=== PATIENT | female | born 1965 | race Caucasian/White ===

== ENCOUNTER 2024-07-03 11:17 | Emergency (ER) | payer BC, OTHER, SELFPAY ==
--- OUTSIDE RECORDS SUMMARY | 2024-07-03 11:19 | XMS REPORT | Continuity of Care Document ---
Author Name Unknown Address [address] [facility] [address] [place] [address] [facility] thconnect Address [address] [facility] [address] [place] [address] Care Team Providers Care Fish And Wildlife Warden Name Role Phone Juan David Miller Attending Clinician Unavailable ASHWIN WOODARD Attending Clinician Unavailable KAYLIN WINSTON Attending Clinician Unavailable JOSE GOSS Attending Clinician Unavailable [id number] Attending Clinician Unavailable Payers Payer Name Policy Type Policy Number Effective Date Expirati on Date Source [employer] MP [employer]: HMO ROUTE SALES [employer]ATE 73 ON STAND 9 [id number] 2022 00:00:00 Problems Condition Name Condition Details Condition Category Status Onset Date Resolution Date Last Treatment Date Treating Clinician Comments Source 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 Disease Active 10-18 00:00: 00 Pooja ann Primary hypertensi on Primary hypertensi on Disease Active 10-18 00:00: 00 Pooja ann Social History Social Habit Start Date Stop Date Quantity Comments Source Gender identity Jade Garnett - External Sexual orientation Vanesa Garnett - External Alcohol intake 2022-10-18 00:00:00 2022-10-18 00:00:00 Lifetime non-drinker (finding) Pooja Garnett - External Tobacco use and exposure 2022-10-16 00:00:00 2022-10-16 00:00:00 Smokeless tobacco non-user Pooja Seybold - External History of Social function 2022-10-16 00:00:00 2022-10-16 00:00:00 Pooja Little Sex Ass[birth year] At 1965 00:00:00 1965 00:00:00 Pooja Little Smoking Status Start Date Stop Date Source Never smoked tobacco Pooja Little Medications Ordered Medication Name Filled Medication Name Start Date Stop Date Current Medication? Ordering Clinician Indication Dosage Frequency Signature (SIG) Comments Components Source Metformin HCl 1000 MG oral Tablet 10-18 08:31: 21 Yes [id number] 3 1000mg Take 1 tablet (1,000 mg total) by mouth in the morning and 1 tablet (1,000 mg total) in the evening. Take with meals. Patient states she only takes 1 at bedtime. Pooja ann Pravastatin Sodium 10 MG oral Tablet 10-18 08:31: 21 Yes [id number] 3 10mg Take 1 tablet (10 mg total) by mouth daily Pooja ann Tirzepatide 10 MG/0.5ML subcutaneou s Solution Pen-injecto r 10-18 08:31: 21 Yes [id number] 3 10mg Inject 0.5 mL (10 mg total) into the skin once a week Pooja ann Lisinopril 5 MG oral Tablet 10-18 08:29: 05 10-18 00:00 :00 No 2.5mg Take 0.5 tablets (2.5 mg total) by mouth daily Pooja ann Lisinopril 5 MG oral Tablet 10-18 00:00: 00 Yes [id number] 5mg Take 1 tablet (5 mg total) by mouth daily Pooja ann Lisinopril 10 MG oral Tablet 10-09 00:00: 00 10-18 00:00 :00 No 10mg Take 1 tablet (10 mg total) by mouth daily Pooja ann OZEMPIC (0.25 or 0.5 mg/dose) 2 mg/1.5 mL SQ Solution Pen-Injecto r 10-09 00:00: 00 10-18 00:00 :00 No .5mg 0.5 mg once a week Pooja ann Fosinopril Sodium 10 MG oral Tablet 09-19 00:00: 00 10-18 00:00 :00 No TAKE 1/2 TABLET ONCE A DAY FOR 90 DAYS Pooja Allisona marissa Vital Signs Vital Name Observation Time Observation Value Comments S ource Systolic blood pressure 2022-10-18 13:22:00 104 mm[Hg] Pooja Williso ld - External Diastolic blood pressure 2022-10-18 13:22:00 64 mm[Hg] Pooja Williso ld - External Heart rate 2022-10-18 13:22:00 75 /min [place] delfina Garnett - External Body temperature 2022-10-18 13:22:00 36 Opal Pooja Willisold - External Respiratory rate 2022-10-18 13:22:00 14 /min Poojaantony Garnett - External Body height 2022-10-18 13:22:00 160 cm Jade Willisold - External Body weight 2022-10-18 13:22:00 73.936 kg Jade schroeder Seybold - External BMI 2022-10-18 13:22:00 28.87 kg/m2 Jade schroeder Seybold - External Encounters Start Date/Time End Date/Time Encounter Type Admission Type Attending [facility] Facility Care Department Encounter ID Source 2023-02-24 10:59:01 Outpatient Paul [facility] [id number] [facility] 2022-12-23 15:24:00 Outpatient Miller, [facility] [id number] [facility] 2022-12-13 11:03:01 Outpatient Miller, [facility] [id number] [facility] 2022-09-17 11:05:01 Outpatient Paul [facility] [id number] [facility] 2022-09-09 11:50:01 Outpatient Paul [facility] [id number] [facility] 2022-06-11 16:11:01 Outpatient MillerShahbazh [facility] [id number] [facility] 2022-03-12 09:20:03 Outpatient MillerShahbaz johnsonh [facility] [id number] [facility] 2022-02-13 10:41:03 Outpatient MillerSahhbaz johnsonh [facility] [id number] [facility] 2024-06-18 14:41:47 2024-06-18 14:41:47 Outpatient [facility] [id number] [facility] 2024-04-19 11:01:28 2024-04-19 11:01:28 Outpatient [facility] [id number] [facility] 2024-03-09 09:10:56 2024-03-09 09:10:56 Outpatient [facility] S[facility] [id number] [facility] 2024-03-03 08:15:56 2024-03-03 08:15:56 Outpatient [facility] S[facility] [id number] [facility] 2024-02-20 10:35:44 2024-02-20 10:35:44 Outpatient S[facility] SFA [id number] [facility] 2024-02-19 13:50:31 2024-02-19 13:50:31 Outpatient [facility] S[facility] [id number] [facility] 2024-01-21 13:06:32 2024-01-21 13:06:32 Outpatient [facility] S[facility] [id number] [facility] 2024-01-08 16:26:58 2024-01-08 16:26:58 Outpatient [facility] S[facility] [id number] [facility] 2023-12-29 16:02:41 2023-12-29 16:02:41 Outpatient S[facility] SFA [id number] [facility] 2023-12-25 08:02:03 2023-12-25 08:02:03 Outpatient SFA SFA [id number] [facility] 2023-12-22 10:03:51 2023-12-22 10:03:51 Outpatient SFA SFA [id number] [facility] 2023-08-25 17:28:10 2023-08-25 17:28:10 Outpatient SFA SFA [id number] [facility] 2023-07-04 16:13:07 2023-07-04 16:13:07 Outpatient SFA SFA [id number] [facility] 2023-07-01 12:04:26 2023-07-01 12:04:26 Outpatient SFA SFA [id number] [facility] 2023-04-07 09:36:34 2023-04-07 09:36:34 Outpatient SFA SFA [id number] [facility] 2023-01-31 08:31:40 2023-01-31 08:31:40 Outpatient SFA SFA [id number] [facility] 2023-01-20 14:00:00 2023-01-20 14:00:00 Outpatient ASHWIN WOODARD [id number] [facility] 2022-12-18 00:00:00 2022-12-18 00:00:00 Outpatient KAYLIN WINSTON [id number] [facility] 2022-11-28 00:00:00 2022-11-28 00:00:00 Outpatient JOSE GOSS [id number] [facility] 2022-11-18 00:00:00 2022-11-18 00:00:00 Outpatient KAYLIN WINSTON [id number] Poo[facility] 2022-10-20 00:00:00 2022-10-20 00:00:00 Outpatient KAYLIN WINSTON [id number] Pooja Garnett 2022-10-18 09:20:00 2022-10-18 09:20:00 Outpatient JONES ALMANZAR [id number] Pooja Garnett 2022-10-18 08:30:00 2022-10-18 08:30:00 Outpatient KAYLIN WINSTON [id number] Pooja Garnett 2022-10-18 00:00:00 2022-10-18 00:00:00 Outpatient POOJA ALMANZAR [id number] Pooja Garnett 2022-10-09 15:45:24 2022-10-09 15:45:24 Outpatient [facility] [id number] [facility] 2022-08-05 13:03:18 2022-08-05 13:03:18 Outpatient [facility] [id number] [facility] 2022-07-02 15:50:02 2022-07-02 15:50:02 Outpatient [facility] [id number] [facility] 2022-04-09 08:19:00 2022-04-09 08:19:00 Outpatient [facility] [id number] [facility] 2022-04-08 14:58:39 2022-04-08 14:58:39 Outpatient [facility] [id number] [facility] Results Test Description Test Time Test Comments Results Result Co mments Source HEMOGLOBIN [id number] 08:05:51* Test Item Value Reference Range Interpretation Comme nts HEMOGLOBIN A1c (test code = 26344) 7.2 % 4.2-5.6 H BUL[employer]IAN DI[employer] S [employer]OCIATION GUIDELINES FOR HGB A1C: PREDIABETES/INCREASED RISK . . . . . . . 5.7-6.4% DIAGNOSIS OF DIABETES . . . . . . . . . >=6.5% WITH CONFIRMATION OR APPROPRIATE SYMPTOMS NOTE: ASSAY MAY BE AFFECTED BY HEMOGLOBINOPATHIES (SICKLE CELL ANEMIA, S-C DISEASE, OTHERS) OR ARTIFICIALLY LOWERED BY DECREASED RED CELL SURVIVAL (HEMOLYTIC ANEMIAS, BLOOD LOSS, ETC.). CONSIDER ALTERNATE TESTING OR LABORATORY CONSULTATION. ALBUMIN/CREATININE RATIO, URINE, [id number] 05:03:24* Test Item Value Reference Range Interpretation Comme nts CREATININE, URINE, CONC. (test code = 2072) 37.8 MG/DL NOT ESTAB ALBUMIN, URINE, RANDOM (test code = 70888) 0.3 MG/DL NOT ESTAB CALC ALBUMIN/CREAT, RND (test code = 74122) 8 MG/G <30 Note: Albumin/Creatinine ratio reference interval reflects ADA and NKF guidelines. COMPREHENSIVE METABOLIC [id number] 04:20:06* Test Item Value Reference Range Interpretation Comme nts GLUCOSE (test code = 2216) 332 MG/DL 70-99 H BUN (test code = 2207) 13 MG/DL 6-20 CREATININE (test code = 2213) 0.64 MG/DL 0.60-1.30 eGFR (2020 CKD-EPI) (test code = 30061) 102 ML/MIN/1.73 >60 CALC BUN/CREAT (test code = 2234) 20 RATIO 6-28 SODIUM (test code = 2230) 137 MEQ/L 133-146 POTASSIUM (test code = 2227) 4.4 MEQ/L 3.5-5.4 CHLORIDE (test code = 2214) 100 MEQ/L 95-107 CARBON DIOXIDE (test code = 2205) 25 MEQ/L 19-31 CALCIUM (test code = 2208) 9.1 MG/DL 8.5-10.5 PROTEIN, TOTAL (test code = 2228) 7.1 G/DL 6.1-8.3 ALBUMIN (test code = 2200) 4.3 G/DL 3.5-5.2 CALC GLOBULIN (test code = 2240) 2.8 G/DL 1.9-3.7 CALC A/G RATIO (test code = 2233) 1.5 RATIO 1.0-2.6 BILIRUBIN, TOTAL (test code = 2206) 0.4 MG/DL <=1.2 ALKALINE PHOSPHATASE (test code = 2203) 114 U/L 40-136 AST (test code = 221) 37 U/L 9-40 ALT (test code = 221) 47 U/L 5-40 H LIPID [id number] 04:20:06* Test Item Value Reference Range Interpretation Comme nts CHOLESTEROL (test code = 2210) 185 MG/DL <200 TRIGLYCERIDES (test code = 2232) 133 MG/DL <150 HDL CHOLESTEROL (test code = 2220) 57 MG/DL >39 CALC LDL CHOL (test code = 2236) 105 MG/DL <100 H NOTE: CALCULATED LDL IS BASED ON RAFAEL-ZAVALA METHOD WHICHINCLUDES ADJUSTABLE TRIGLYCERIDE:VLDL CHOLESTEROL RATIO.THIS FACTOR VARIES BY MEASURED TRIGLYCERIDE AND NON-HDLCHOLESTEROL CONCENTRATIONS WITH INCREASED CALCULATED LDL SEENIN HIGHER TRIGLYCERIDE OR LOWER NON-HDL SPECIMENS. FOR MOREINFORMATION, SEE CLIENT ANNOUNCEMENT AT [email or web address] /[email or web address]-C RISK RATIO LDL/HDL (test code = 2238) 1.84 RATIO <3.22 UNLESS OTHERW ISE INDICATED, ALL TESTING PERFORMED AT [facility] [address] [place], [place] [id number] UNIVERSAL GRINDER TOOL: VARGHESE ALMAZAN M.D. CLIA NUMBER [id number] [facility] [place]. [id number] PAP TEST, THINPREP, [id number] 04:30:34* Test Item Value Reference Range Interpretation Comme nts SOURCE: (test code = 8001) Cervical/Endoce rvical SLIDES: (test code = 8011) 1 LMP: (test code = 8021) SEE NOTE POST MENOPAUSAL SPECIMEN ADEQUACY: (test code = 52749) (NOTE) Satisfactory for evaluation. Endocervical cells/transformation zone component present. INTERPRETATION: (test code = 34784) NILM/NO EPITH. ABNORMALITY;SEE BELOW --- - NEGATIVE FOR INTRAEPITHELIAL LESION OR MALIGNANCY (NILM) ---- OTHER COMMENTS: (test code = 8081) (NOTE) Atrophic changes present. FRETTED STRING INSTRUMENT REPAIRER : (test code = 8101) Shannan Robles TECHNOLOGIST: (test code = 8111) BELEN KENT(ASCP) LOCATION: (test code = 76764) (NOTE) Specimens proces sed and interpreted at [facility], [address] [place] [address], , CLIA: [id number] CPT: (test code = 8140) (NOTE) 86433 UNLESS OTH ERWISE INDICATED, COMPUTER AIDED AND FRETTED STRING INSTRUMENT REPAIRER SCREENING PERFORMED. The Pap test is a screening test with an inherent, but low probability of error. Your patient should be reminded to consult you immediately if she experiences any suspicious signs or symptoms, regardless of her Pap test result. An alternate report format containing images or consolidated prior Pap history is available as applicable. HPV HIGH RISK WITH GENOTYPE, [id number] 18:38:12* Test Item Value Reference Range Interpretation Comme nts HPV HIGH RISK INTERP (test code = 91748) POSITIVE NEGATIVE A HPV 16 (test code = 65580) NEGATIVE HPV 18 (test code = 95322) NEGATIVE HPV, HR, OTHER GENOTYPES (test code = 60936) POSITIVE A Testing methodol ogy is real-time PCR utilizing hydrolysis probes with the [employer] system. The test individually detects genotypes 16 and 18, as well as the other 12 high risk types (31,33,35,39,45,51,52,56 ,58,59,66,68). The expected result is negative. A negative result does not rule out the presence of HPV not included in the genotype set, a low level of infection or specimen sampling error. UNLESS OTHERWISE INDICATED, ALL TESTING PERFORMED AT [facility] [address] [place] [address] UNIVERSAL GRINDER TOOL: VARGHESE ALMAZAN M.D. CLIA NUMBER [id number] [place]. [id number] HEMOGLOBIN [id number] 03:32:34* Test Item Value Reference Range Interpretation Comme [facility] HEMOGLOBIN A1c (test code = 86527) 6.3 % 4.2-5.6 H [employer]ULG[employer]IAN DIAB[employer]E S ASSOCIATION GUIDELINES FOR HGB A1C: PREDIABETES/INCREASED RISK . . . . . . . 5.7-6.4% DIAGNOSIS OF DIABETES . . . . . . . . . >=6.5% WITH CONFIRMATION OR APPROPRIATE SYMPTOMS NOTE: ASSAY MAY BE AFFECTED BY HEMOGLOBINOPATHIES (SICKLE CELL ANEMIA, S-C DISEASE, OTHERS) OR ARTIFICIALLY LOWERED BY DECREASED RED CELL SURVIVAL (HEMOLYTIC ANEMIAS, BLOOD LOSS, ETC.). CONSIDER ALTERNATE TESTING OR LABORATORY CONSULTATION. UNLESS OTHERWISE INDICATED, ALL TESTING PERFORMED AT [facility] [address] [place] [address] UNIVERSAL GRINDER TOOL: VARGHESE ALMAZAN M.D. CLIA NUMBER [id number] [place]. [id number] COMPREHENSIVE METABOLIC [id number] 06:03:26* Test Item Value Reference Range Interpretation Comme nts GLUCOSE (test code = 2216) 96 MG/DL 70-99 BUN (test code = 2207) 17 MG/DL 6-20 CREATININE (test code = 2213) 0.83 MG/DL 0.60-1.30 eGFR (2020 CKD-EPI) (test code = ) 82 ML/MIN/1.73 >60 CALC BUN/CREAT (test code = 2234) 20 RATIO 6-28 SODIUM (test code = 2230) 143 MEQ/L 133-146 POTASSIUM (test code = 2227) 4.5 MEQ/L 3.5-5.4 CHLORIDE (test code = 2214) 104 MEQ/L 95-107 CARBON DIOXIDE (test code = 2205) 24 MEQ/L 19-31 CALCIUM (test code = 2208) 10.5 MG/DL 8.5-10.5 PROTEIN, TOTAL (test code = 2228) 7.9 G/DL 6.1-8.3 ALBUMIN (test code = 2200) 5.2 G/DL 3.5-5.2 CALC GLOBULIN (test code = 2239) 2.7 G/DL 1.9-3.7 CALC A/G RATIO (test code = 2233) 1.9 RATIO 1.0-2.6 BILIRUBIN, TOTAL (test code = 2206) 0.3 MG/DL See_Comment [Automated me ssage] The system which generated this result transmitted reference range: <=1.2. The reference range was not used to interpret this result as normal/abnormal. ALKALINE PHOSPHATASE (test code = 2203) 60 U/L 40-136 AST (test code = 2217) 27 U/L 9-40 ALT (test code = 2219) 26 U/L 5-40 LIPID [id number] 06:03:26* Test Item Value Reference Range Interpretation Comme nts CHOLESTEROL (test code = 0) 180 MG/DL <200 TRIGLYCERIDES (test code = 2232) 110 MG/DL <150 HDL CHOLESTEROL (test code = 2220) 72 MG/DL >39 CALC LDL CHOL (test code = 2236) 87 MG/DL <100 NOTE: CALCULATED LDL IS BASED ON RAFAEL-ZAVALA METHOD WHICHINCLUDES ADJUSTABLE TRIGLYCERIDE:VLDL CHOLESTEROL RATIO.THIS FACTOR VARIES BY MEASURED TRIGLYCERIDE AND NON-HDLCHOLESTEROL CONCENTRATIONS WITH INCREASED CALCULATED LDL SEENIN HIGHER TRIGLYCERIDE OR LOWER NON-HDL SPECIMENS. FOR MOREINFORMATION, SEE CLIENT ANNOUNCEMENT AT [email or web address] /CalcLDL-C RISK RATIO LDL/HDL (test code = 2238) 1.21 RATIO <3.22 HEMOGLOBIN [id number] 04:57:56* Test Item Value Reference Range Interpretation Comme nts HEMOGLOBIN A1c (test code = 49037) 6.3 % 4.2-5.6 H [facility] has impo rtant pathology staff changes effective 08/28/2022. New pathology staff will provide uninterrupted, excellent patient care and clinical consultation. See URL: [email or web address]. UNLESS OTHERWISE INDICATED, ALL TESTING PERFORMED AT [facility] [address] [place] [address] CLIA: [id number], CAP: [id number] LIPID [id number] 08:22:51* Test Item Value Reference Range Interpretation Comme nts CHOLESTEROL (test code = 2210) 168 MG/DL <200 TRIGLYCERIDES (test code = 2232) 90 MG/DL <150 HDL CHOLESTEROL (test code = 2220) 65 MG/DL >39 CALC LDL CHOL (test code = 2237) 85 MG/DL <100 NOTE: CALCULATED LDL IS BASED ON RAFAEL-ZAVALA METHOD WHICHINCLUDES ADJUSTABLE TRIGLYCERIDE:VLDL CHOLESTEROL RATIO.THIS FACTOR VARIES BY MEASURED TRIGLYCERIDE AND NON-HDLCHOLESTEROL CONCENTRATIONS WITH INCREASED CALCULATED LDL SEENIN HIGHER TRIGLYCERIDE OR LOWER NON-HDL SPECIMENS. FOR MOREINFORMATION, SEE CLIENT ANNOUNCEMENT AT [email or web address] /CalcLDL-C RISK RATIO LDL/HDL (test code = 2238) 1.31 RATIO <3.22 COMPREHENSIVE METABOLIC [id number] 08:22:51* Test Item Value Reference Range Interpretation Comme nts GLUCOSE (test code = 2217) 195 MG/DL 70-99 H BUN (test code = 2208) 20 MG/DL 6-20 CREATININE (test code = 2214) 0.71 MG/DL 0.60-1.30 eGFR (2020 CKD-EPI) (test code = 60545) 99 ML/MIN/1.73 >60 CALC BUN/CREAT (test code = 2235) 28 RATIO 6-28 SODIUM (test code = 2230) 144 MEQ/L 133-146 POTASSIUM (test code = 8) 4.8 MEQ/L 3.5-5.4 CHLORIDE (test code = 2214) 106 MEQ/L 95-107 CARBON DIOXIDE (test code = 2205) 26 MEQ/L 19-31 CALCIUM (test code = 2208) 9.8 MG/DL 8.5-10.5 PROTEIN, TOTAL (test code = 2228) 7.2 G/DL 6.1-8.3 ALBUMIN (test code = 2200) 4.6 G/DL 3.5-5.2 CALC GLOBULIN (test code = 2239) 2.6 G/DL 1.9-3.7 CALC A/G RATIO (test code = 2233) 1.8 RATIO 1.0-2.6 BILIRUBIN, TOTAL (test code = 2206) 0.2 MG/DL See_Comment [Automated me ssage] The system which generated this result transmitted reference range: <=1.2. The reference range was not used to interpret this result as normal/abnormal. ALKALINE PHOSPHATASE (test code = 2203) 66 U/L 40-136 AST (test code = 2217) 19 U/L 9-40 ALT (test code = 2218) 24 U/L 5-40 UNLESS OTHERWISE INDICATED, [facility] [address] [place] [address] UNIVERSAL GRINDER TOOL: OLINDA CROWLEY M.D. IA NUMBER [id number] [facility] [place]. [id number] HEMOGLOBIN [id number] 03:57:27* Test Item Value Reference Range Interpretation Comme nts HEMOGLOBIN A1c (test code = 64305) 7.7 % 4.2-5.6 H BULGARIAN DIABETE S ASSOCIATION GUIDELINES FOR HGB A1C: PREDIABETES/INCREASED RISK . . . . . . . 5.7-6.4% DIAGNOSIS OF DIABETES . . . . . . . . . >=6.5% WITH CONFIRMATION OR APPROPRIATE SYMPTOMS NOTE: ASSAY MAY BE AFFECTED BY HEMOGLOBINOPATHIES (SICKLE CELL ANEMIA, S-C DISEASE, OTHERS) OR ARTIFICIALLY LOWERED BY DECREASED RED CELL SURVIVAL (HEMOLYTIC ANEMIAS, BLOOD LOSS, ETC.). CONSIDER ALTERNATE TESTING OR LABORATORY CONSULTATION. LIPID [id number] 05:22:31* Test Item Value Reference Range Interpretation Comme nts CHOLESTEROL (test code = 2210) 184 MG/DL <200 TRIGLYCERIDES (test code = 2232) 128 MG/DL <150 HDL CHOLESTEROL (test code = 2220) 67 MG/DL >39 CALC LDL CHOL (test code = 2237) 95 MG/DL <100 NOTE: CALCULATED LDL IS BASED ON RAFAEL-ZAVALA METHOD WHICHINCLUDES ADJUSTABLE TRIGLYCERIDE:VLDL CHOLESTEROL RATIO.THIS FACTOR VARIES BY MEASURED TRIGLYCERIDE AND NON-HDLCHOLESTEROL CONCENTRATIONS WITH INCREASED CALCULATED LDL SEENIN HIGHER TRIGLYCERIDE OR LOWER NON-HDL SPECIMENS. FOR MOREINFORMATION, SEE CLIENT ANNOUNCEMENT AT [email or web address] /CalcLDL-C RISK RATIO LDL/HDL (test code = 2238) 1.42 RATIO <3.22 COMPREHENSIVE METABOLIC [id number] 05:22:31* Test Item Value Reference Range Interpretation Comme nts GLUCOSE (test code = 2217) 215 MG/DL 70-99 H BUN (test code = 2207) 17 MG/DL 6-20 CREATININE (test code = 221) 0.77 MG/DL 0.60-1.30 eGFR (2020 CKD-EPI) (test code = 25307) 90 ML/MIN/1.73 >60 CALC BUN/CREAT (test code = 2235) 22 RATIO 6-28 SODIUM (test code = 223) 144 MEQ/L 133-146 POTASSIUM (test code = 2228) 5.0 MEQ/L 3.5-5.4 CHLORIDE (test code = 2215) 105 MEQ/L 95-107 CARBON DIOXIDE (test code = 2206) 26 MEQ/L 19-31 CALCIUM (test code = 2209) 10.0 MG/DL 8.5-10.5 PROTEIN, TOTAL (test code = 222) 7.6 G/DL 6.1-8.3 ALBUMIN (test code = 2201) 4.8 G/DL 3.5-5.2 CALC GLOBULIN (test code = 2240) 2.8 G/DL 1.9-3.7 CALC A/G RATIO (test code = 2234) 1.7 RATIO 1.0-2.6 BILIRUBIN, TOTAL (test code = 2207) 0.3 MG/DL See_Comment [Automated me ssage] The system which generated this result transmitted reference range: <=1.2. The reference range was not used to interpret this result as normal/abnormal. ALKALINE PHOSPHATASE (test code = 2204) 71 U/L 40-136 AST (test code = 2218) 25 U/L 9-40 ALT (test code = 2219) 25 U/L 5-40 UNLESS OTHERWISE INDICATED, ALL TESTING PERFORMED [facility] [address] [place] [address] UNIVERSAL GRINDER TOOL: OLINDA CROWLEY M.D. CLIA NUMBER [id number] [place]. [id number] HEMOGLOBIN [id number] 04:14:07* Test Item Value Reference Range Interpretation Comme [facility] HEMOGLOBIN A1c (test code = 13044) 8.1 % 4.2-5.6 H [employer] DI[employer] S ASSOCIATION GUIDELINES FOR HGB A1C: PREDIABETES/INCREASED RISK . . . . . . . 5.7-6.4% DIAGNOSIS OF DIABETES . . . . . . . . . >=6.5% WITH CONFIRMATION OR APPROPRIATE SYMPTOMS NOTE: ASSAY MAY BE AFFECTED BY HEMOGLOBINOPATHIES (SICKLE CELL ANEMIA, S-C DISEASE, OTHERS) OR ARTIFICIALLY LOWERED BY DECREASED RED CELL SURVIVAL (HEMOLYTIC ANEMIAS, BLOOD LOSS, ETC.). CONSIDER ALTERNATE TESTING OR LABORATORY CONSULTATION. HEMOGLOBIN [id number] 04:49:11* Test Item Value Reference Range Interpretation Comme [facility] HEMOGLOBIN A1c (test code = 57102) 8.9 % 4.2-5.6 H [employer] S [employer]OCIATION GUIDELINES FOR HGB A1C: PREDIABETES/INCREASED RISK . . . . . . . 5.7-6.4% DIAGNOSIS OF DIABETES . . . . . . . . . >=6.5% WITH CONFIRMATION OR APPROPRIATE SYMPTOMS NOTE: ASSAY MAY BE AFFECTED BY HEMOGLOBINOPATHIES (SICKLE CELL ANEMIA, S-C DISEASE, OTHERS) OR ARTIFICIALLY LOWERED BY DECREASED RED CELL SURVIVAL (HEMOLYTIC ANEMIAS, BLOOD LOSS, ETC.). CONSIDER ALTERNATE TESTING OR LABORATORY CONSULTATION. UNLESS OTHERWISE INDICATED, ALL TESTING PERFORMED [employer]. [address] [place] [address] UNIVERSAL GRINDER TOOL: Sera BURRIA NUMBER [id number] [place]. [id number]
[2024-07-03] MEDS ORDERED: ONDANSETRON 4 MG/2 ML VIAL ONE (11:44)
[2024-07-03] MEDS ORDERED: MORPHINE 4 MG/ML SYR ONE ×2 (11:44→12:21)
[2024-07-03 11:51] LABS: Absolute Lymphocytes (CBC) 1.4 K/uL (0.7-4.9); Absolute Monocytes 0.4 K/uL (0.1-1.3); Absolute Neutrophil 3.7 K/uL (1.8-8.0); Basophils % 0.2 % (0-1.3); Eosinophils % 0.5 % (0-4.4); Hematocrit 40.4 % (36.0-45.0); Lymphocytes % 24.6 % (15.3-44.8); MCH 29.8 pg (27.0-35.0); MCHC 34.6 g/dL (32.0-36.0); MCV 86.3 fL (80-100); MPV 8.3 fL (7.6-11.3); Monocytes % 7.9 % (3.3-12.3); Neutrophils % 66.8 % (41.7-73.7); Nucleated Red Blood Cells % 0.1 % (0-0); Platelets 194 thou/uL (152-406); RBC Red Blood Cell Count 4.69 M/uL (3.86-4.86); Red Cell Distribution Width 13.1 % (12.1-15.2)
[2024-07-03 12:06] LABS: Anion Gap 13.9 mEq/L (5.0-15.0); Potassium 3.9 mEq/L (3.5-5.1)
[2024-07-03] MEDS ORDERED: NA CHLORIDE 0.9% 1,000 ML ONE (12:21)
[2024-07-03] MEDS ORDERED: LIDOCAINE 2% W/EPI 1:200,000 MPF 20 ML VIAL IM ONE (12:34)
--- NOTE | 2024-07-03 12:44 | RAD REPORT ---
EXAMINATION: CT ABDOMEN AND PELVIS WITH CONTRAST CLINICAL INDICATION: VAGINAL BLEEDING TECHNIQUE: CT abdomen and pelvis was performed, after the administration of IV contrast, as per [facility] protocol. Axial, sagittal and coronal reconstructions were obtained. One or more of the following dose reduction techniques were used: Automated exposure control, adjustment of the mA and k V according to patient size, and iterative reconstruction. Unless otherwise specified, incidental findings do not require dedicated imaging follow-up. COMPARISON: No prior exam. FINDINGS: LOWER CHEST: The visualized lung bases are clear. LIVER: Mild fatty liver is present. No focal lesion or biliary dilatation is seen. Grossly unremark able gallbladder. SPLEEN: Normal size. No focal lesion. PANCREAS: No mass, ductal dilation, or zbigniew-pancreatic fluid. ADRENALS: Normal; no mass. KIDNEYS: Normal size and contour. No hydronephrosis. GASTROINTESTINAL TRACT: No evidence of free air, significant intra-abdominal free fluid, bowel obstru ction or abscess. There is mild diverticulosis coli of the sigmoid colon without diverticulitis. APPENDIX: Normal appendix. LYMPH NODES: No lymphadenopathy. MUSCULOSKELETAL: Mild lower lumbar degenerative changes. ADDITIONAL FINDINGS: Tiny air bubble seen near urinary bladder. Mild thickening of the cervix. IMPRESSION: Tiny air bubble in the urinary bladder could be related to infection recent dictation. Thickening of the cervix is seen, suggest correlation with Pap smear if not recently performed. Sigmoid diverticulosis coli without diverticulitis. Fatty liver.
--- NOTE | 2024-07-03 13:44 | RAD REPORT ---
EXAMINATION: US PELVIS TRANSABDOMINAL WITH DOPPLER CLINICAL INDICATION: VAGINAL BLEEDING TECHNIQUE: Real-time ultrasonography of the pelvis was performed transabdominally. Color and spectral Doppler evaluation of the ovaries was performed. COMPARISON: No prior exam. FINDINGS: UTERUS AND CERVIX: The uterus measures 8.8 x 4.3 x 2.0 cm (cervix to fundus x AP x transverse). The u terus is normal. No masses seen The endometrium is normal,3 mm in thickness. Heterogenous and somewhat bulky appearance to the cervix . RIGHT OVARY: Normal The right ovary measures 2.3 x 1.6 x 1.1 cm. Normal color and spectral Doppler ev aluation of the right ovary.. LEFT OVARY: Normal The left ovary measures 2.6 x 1.6 x 1.0 cm. Normal Color and spectral Doppler ev aluation of the left ovary.. FREE FLUID: No free fluid. ADDITIONAL FINDINGS: IMPRESSION: Somewhat bulky and heterogenous appearance to the cervix. Recommend Pap smear correlation and/or dire ct visualization for further evaluation.
[2024-07-03 15:21] LABS: Absolute Lymphocytes (CBC) 1.1 K/uL (0.7-4.9); Absolute Monocytes 0.5 K/uL (0.1-1.3); Absolute Neutrophil 6.4 K/uL (1.8-8.0); Basophils % 0.3 % (0-1.3); Eosinophils % 0.1 % (0-4.4); Hematocrit 34.4 % (36.0-45.0); Hemoglobin 11.8 g/dL (12.0-15.0); Lymphocytes % 13.5 % (15.3-44.8); MCH 30.2 pg (27.0-35.0); MCHC 34.5 g/dL (32.0-36.0); MCV 87.7 fL (80-100); MPV 8.2 fL (7.6-11.3); Monocytes % 6.7 % (3.3-12.3); Neutrophils % 79.4 % (41.7-73.7); Platelets 169 thou/uL (152-406); RBC Red Blood Cell Count 3.91 M/uL (3.86-4.86); Red Cell Distribution Width 13.2 % (12.1-15.2)
--- NOTE | 2024-07-03 15:30 | EDPHYS ---
Physician Documentation [facility] Name: Aaliyah Bronson Age: 59 yrs Sex: Female : 1965 Arrival Date: 07/03/2024 Time: 11:17 Bed 13 Private MD: ED Physician Brigido Medeiros HPI: 07/03 11:29 This 59 yrs old Female presents to ER via Unassigned with complaints of dr5 Abdominal Pain. 11:29 Onset: The symptoms/episode began/occurred acutely. Patient is a 59-year-old female dr5 with history of diabetes coming in with light vaginal bleeding that started last night and worsened this morning after having sexual intercourse with . Patient reports that she felt a pop during intercourse and vaginal bleeding worsened and patient developed pelvic pain. Patient has tubal ligation and no IUD.. Historical: - Allergies: 11:30 No Known Allergies; rs5 - PMHx: 11:30 Diabetes mellitus; rs5 - PSHx: 11:30 section; rs5 - Immunization history:: Adult Immunizations up to date. - Infectious Disease History:: Denies. - Social history:: Smoking status: Patient denies any tobacco usage or history of. ROS: 11:29 Constitutional: as per hpi dr5 Exam: 11:29 Constitutional: This is a well developed, well nourished patient who is awake, alert, dr5 and in no acute distress. Head/Face: Normocephalic, atraumatic. Eyes: Pupils equal round and reactive to light, extra-ocular motions intact. Lids and lashes normal. Conjunctiva and sclera are non-icteric and not injected. Cornea within normal limits. Periorbital areas with no swelling, redness, or edema. Neck: Trachea midline, no thyromegaly or masses palpated, and no cervical lymphadenopathy. Supple, full range of motion without nuchal rigidity, or vertebral point tenderness. No Meningismus. Chest/axilla: Normal chest wall appearance and motion. Nontender with no deformity. No lesions are appreciated. Cardiovascular: Regular rate and rhythm with a normal S1 and S2. Normal PMI, no JVD. No pulse deficits. Respiratory: Lungs have equal breath sounds bilaterally, clear to auscultation. No rales, rhonchi or wheezes noted. No increased work of breathing, no retractions or nasal flaring. 11:29 Back: No spinal tenderness. No costovertebral tenderness. Full range of motion. Neuro: Awake and alert, GCS 15, oriented to person, place, time, and situation. Cranial nerves II-XII grossly intact. Motor strength 5/5 in all extremities. Sensory grossly intact. Cerebellar exam normal. Normal gait. 11:29 Abdomen/GI: Inspection: abdomen appears normal, Bowel sounds: normal, Palpation: moderate abdominal tenderness, in the right lower quadrant and left lower quadrant, 12:15 : Pelvic Exam: External exam: is normal, Speculum exam: severe bleeding, blood clots dr5 in vaginal vault, a female mathematics academic chair was present for the exam, 16:34 : Pelvic Exam: External exam: is normal, Speculum exam: severe bleeding, blood clots dr5 in vaginal vault, Bleeding noted from below cervix. Difficult to visualize laceration due to amount of blood present with severe blood clots., Vital Signs: 11:28 BP 144 / 77; Pulse 120; Resp 18; Pulse Ox 99% on R/A; rs5 11:30 Weight 72.57 kg; Height 5 ft. 3 in. ; rs5 12:15 BP 124 / 83; Pulse 108; Resp 19; Temp 98; Pulse Ox 100% on R/A; rs5 14:08 BP 132 / 84; Pulse 84; Resp 18; Pulse Ox 99% on R/A; rs5 16:01 BP 118 / 77; Pulse 80; Resp 17; Pulse Ox 99% on R/A; rs5 11:30 Body Mass Index 28.34 (72.57 kg, 160.02 cm) rs5 MDM: 11:22 Medical Screening Exam initiated dr5 14:31 ED course: Attempted to pack vaginal canal with 2 -4 x 4 pieces of gauze soaked with dr5 lidocaine with epi with no resolution of bleeding. Patient has multiple large clots and continuous bleeding noted from area below cervix. Will repeat CBC and transfer. 16:30 Differential diagnosis: Cervical Laceration, Vaginal Canal Trauma. Data reviewed: vital dr5 signs, nurses notes. Consideration of Admission/Observation Patient was admitted/placed on observation. Care significantly affected by the following chronic conditions: Diabetes. Care significantly affected by the following Social Determinants of Health: Poor access to healthcare and/or lack of insurance, Poor access to transportation, Problems related to employment. Counseling: I had a detailed discussion with the patient and/or guardian regarding the historical points, exam findings, and any diagnostic results supporting the discharge/admit diagnosis, the presence of at least one elevated blood pressure reading (>120/80) during this emergency department visit, the need for further work-up and treatment in the hospital, the need to transfer to another facility, for higher level of care, [facility] does not immediately have the required specialist, [facility] doesn't have ACADEMIC AFFAIRS SPECIALIST service. ED course: Repeat CBC revealed drop of Hgb from 14 to 11.8. Spoke with ACADEMIC AFFAIRS SPECIALIST at [facility] and placed vaginal packing with gauze and donohue catheter per Dr. Cantu's recommendations.. 07/03 11:29 Order name: Abo/rh Typing; Complete Time: 12:33 [facility] 07/03 11:29 Order name: Basic Metabolic Panel; Complete Time: 12:13 [facility] 07/03 11:29 Order name: CBC with Diff; Complete Time: 11:55 [facility] 07/03 12:13 Order name: Type And Screen; Complete Time: 15:29 [facility] 07/03 14:31 Order name: CBC with Diff; Complete Time: 15:29 [facility] 07/03 12:12 Order name: CT Abd/Pelvis - IV Contrast Only; Complete Time: 12:46 [facility] 07/03 12:13 Order name: US Pelvis Complete; Complete Time: 14:02 [facility] 07/03 11:29 Order name: IV Saline Lock; Complete Time: 12:07 [facility] 07/03 11:29 Order name: Labs collected and sent; Complete Time: 12:07 [facility] 07/03 11:29 Order name: NPO; Complete Time: 12:07 [facility] 07/03 11:29 Order name: Pelvic Exam Setup; Complete Time: 12:07 [facility] Administered Medications: 11:40 Drug: morphine IVP or IV 4 mg IVP once over 4 mins Route: IVP; Infused Over: 4 mins; rs5 Site: right antecubital; 12:01 Follow up: Response: No adverse reaction; Pain is decreased rs5 11:45 Drug: Ondansetron IVP 4 mg IVP once; over 2 minutes Route: IVP; Site: right antecubital;rs5 12:10 Follow up: Response: No adverse reaction rs5 12:25 Drug: NS 0.9% IV 1000 ml IV at 1000 ml once; to be given as a bolus over 60 minutes rs5 Route: IV; Rate: 1000 ml; Site: right antecubital; 13:18 Follow up: Response: No adverse reaction; IV Status: Completed infusion; IV Intake: rs5 999ml 12:52 Not Given (Patient Refused): morphineor iv 4 mg IVP once over 4 mins rs5 13:50 Drug: Lidocaine-Epinephrine Infiltration -1%: (1:100,000) 20 ml 20 ml Infiltration rs5 once; to bedside {Note: adm by provider to vaginal area at bedside with charge nurse .} Volume: 20 ml; Route: Infiltration; 14:10 Follow up: Response: No adverse reaction rs5 Disposition Summary: 07/03/24 15:29 Transfer Ordered Notes: Transfer Location: [facility] dr5 Reason: Higher level of care dr5 Condition: Stable dr5 Problem: new dr5 Symptoms: are unchanged dr5 Accepting Physician: Dr. Cantu(07/03/24 16:17) iw Diagnosis - Other specified abnormal uterine and vaginal bleeding dr5 Forms: - Medication Reconciliation Form dr5 - SBAR form dr5 Addendum: 07/05/2024 07:40 I agree with the assessment and plan of care. e c2 Signatures: Dispatcher [employer] Paty Richards RN RN iw Ulices Walsh RN RN rs5 Brigido Medeiros MD MD ec2 Jona Hilton, CUSHION COVER INSPECTOR-C CUSHION COVER INSPECTOR-Cdr5 Corrections: (The following items were deleted from the chart) 07/03 12:17 11:29 Patient is a 59-year-old female with history of diabetes coming in with light dr5 vaginal bleeding that started last night and worsened this morning after having sexual intercourse with . Patient reports that she felt a pop during intercourse and vaginal bleeding worsened and patient developed pelvic pain.. dr5 14:31 14:31 CBC+H.LAB.BRZ ordered. [facility] 16:17 15:29 Dr. Cantu dr5 iw
--- NOTE | 2024-07-03 15:30 | ER ---
Nurse's Notes [facility] Name: Aaliyah Bronson Age: 59 yrs Sex: Female : 1965 Arrival Date: 07/03/2024 Time: 11:17 Bed 13 Private MD: Diagnosis: Other specified abnormal uterine and vaginal bleeding Presentation: 07/03 11:28 Chief complaint: Patient states: Lower abdominal pain started 30 min prior to arrival, rs5 vaginal bleeding since yesterday. Coronavirus screen: At this time, the client does not indicate any symptoms associated with coronavirus-19. Ebola Screen: No symptoms or risks identified at this time. Initial Sepsis Screen: Does the patient meet any 2 criteria? HR > 90 bpm. Yes Does the patient have a suspected source of infection? No. Patient's initial sepsis screen is negative. Risk Assessment: Do you want to hurt yourself or someone else? Patient reports no desire to harm self or others. Onset of symptoms was July 03, 2024. 11:28 Method Of Arrival: Ambulatory rs5 11:28 Acuity: GISELA 3 rs5 12:14 Acuity: GISELA 2 iw Triage Assessment: 16:55 General: Appears in no apparent distress. comfortable, Behavior is calm, cooperative. rs5 Historical: - Allergies: 11:30 No Known Allergies; rs5 - PMHx: 11:30 Diabetes mellitus; rs5 - PSHx: 11:30 section; rs5 - Immunization history:: Adult Immunizations up to date. - Infectious Disease History:: Denies. - Social history:: Smoking status: Patient denies any tobacco usage or history of. Screenin:59 [facility] ED Fall Risk Assessment (Adult) History of falling in the last 3 months, iw including since admission No falls in past 3 months (0 pts) Confusion or Disorientation No (0 pts) Intoxicated or Sedated No (0 pts) Impaired Gait No (0 pts) Mobility Assist Device Used No (0 pt) Altered Elimination No (0 pt) Score/Fall Risk Level 0 - 2 = Low Risk Oriented to surroundings, Maintained a safe environment. Abuse screen: Denies threats or abuse. Denies injuries from another. Nutritional screening: No deficits noted. Tuberculosis screening: No symptoms or risk factors identified. Assessment: 11:25 General: Appears in no apparent distress. uncomfortable, Behavior is calm, cooperative. rs5 Pain: Complains of pain in lower abdomen Pain currently is 8 out of 10 on a pain scale. Quality of pain is described as aching, Is continuous. Neuro: Level of Consciousness is awake, alert, obeys commands, Oriented to person, place, time, situation. Cardiovascular: Patient's skin is warm and dry. Respiratory: Airway is patent Respiratory effort is even, unlabored, Respiratory pattern is regular, symmetrical. GI: Bowel sounds present X 4 quads. Abd is soft and non tender X 4 quads. : Reports vaginal bleeding that is with clots. EENT: No signs and/or symptoms were reported regarding the EENT system. Derm: Skin is intact, Skin is pink, warm \T\ dry. Musculoskeletal: Range of motion: intact in all extremities. 12:15 Reassessment: assisted with pelvic exam, two large blood clots removed , bleeding iw appears to be stopped, pt reports pain has lessened, BP 128/83 HR 108. 12:45 Reassessment: pt gone for CT scan. rs5 13:51 Reassessment: assisted with cervical exam, several blood clots removed by Jona , PILLOWCASE MAKER, iw 4 lidocaine soaked 4X4 gauze used as cervical packing placed by PILLOWCASE MAKER. 13:51 Reassessment: Patient and/or family updated on plan of care and expected duration. Pain rs5 level reassessed. Patient is alert, oriented x 3, equal unlabored respirations, skin warm/dry/pink. 14:34 Reassessment: assist with pelvic exam, Jona PILLOWCASE MAKER removed 2 gauze, bleeding noted to iw inferior cervix , pt updated on plan to repeat labs and transfer for cycle specialist services. 14:59 Reassessment: repacked with 2 more gauze, donohue placed, pt tolerated well. iw 16:01 Reassessment: Patient and/or family updated on plan of care and expected duration. Pain rs5 level reassessed. Patient is alert, oriented x 3, equal unlabored respirations, skin warm/dry/pink. Vital Signs: 11:28 BP 144 / 77; Pulse 120; Resp 18; Pulse Ox 99% on R/A; rs5 11:30 Weight 72.57 kg; Height 5 ft. 3 in. ; rs5 12:15 BP 124 / 83; Pulse 108; Resp 19; Temp 98; Pulse Ox 100% on R/A; rs5 14:08 BP 132 / 84; Pulse 84; Resp 18; Pulse Ox 99% on R/A; rs5 16:01 BP 118 / 77; Pulse 80; Resp 17; Pulse Ox 99% on R/A; rs5 11:30 Body Mass Index 28.34 (72.57 kg, 160.02 cm) rs5 ED Course: 11:20 Patient arrived in ED. ra3 11:22 Jona Hilton FNP-C [facility]. dr5 11:22 Brigido Medeiros MD is Attending Physician. dr5 11:24 Ulices Walsh, CLINT is Primary Nurse. rs5 11:25 Patient has correct armband on for positive identification. Placed in gown. Bed in low rs5 position. Call light in reach. Side rails up X2. 11:25 Arm band placed on right wrist. rs5 11:28 No provider procedures requiring assistance completed. rs5 11:30 Triage completed. rs5 12:39 CT Abd/Pelvis - IV Contrast Only In Process Unspecified. EDMS 13:28 US Pelvis Complete In Process Unspecified. EDMS 14:31 initiated a transfer with Aris from the [facility] transfer center. eb 14:43 administrative approval given by Aris Seymour/ patient has been accepted to [facility] ED/ Dr. Theresa Cantu has accepted the patient in transfer/ report to be called to [phone]. 14:58 Donohue cath inserted, using sterile technique, 16 Fr., by pr, balloon inflated, to iw gravity drainage, returned clear yellow urine. Patient tolerated well. 16:15 Provided Education on: need for transfer . rs5 16:15 Patient transferred, IV remains in place. rs5 Administered Medications: 11:40 Drug: morphine IVP or IV 4 mg IVP once over 4 mins Route: IVP; Infused Over: 4 mins; rs5 Site: right antecubital; 12:01 Follow up: Response: No adverse reaction; Pain is decreased rs5 11:45 Drug: Ondansetron IVP 4 mg IVP once; over 2 minutes Route: IVP; Site: right antecubital;rs5 12:10 Follow up: Response: No adverse reaction rs5 12:25 Drug: NS 0.9% IV 1000 ml IV at 1000 ml once; to be given as a bolus over 60 minutes rs5 Route: IV; Rate: 1000 ml; Site: right antecubital; 13:18 Follow up: Response: No adverse reaction; IV Status: Completed infusion; IV Intake: rs5 999ml 12:52 Not Given (Patient Refused): morphineor iv 4 mg IVP once over 4 mins rs5 13:50 Drug: Lidocaine-Epinephrine Infiltration -1%: (1:100,000) 20 ml 20 ml Infiltration rs5 once; to bedside {Note: adm by provider to vaginal area at bedside with charge nurse .} Volume: 20 ml; Route: Infiltration; 14:10 Follow up: Response: No adverse reaction rs5 Medication: 11:28 VIS not applicable for this client. rs5 Intake: 13:18 IV: 999ml; Total: 999ml. rs5 Outcome: 15:29 ER care complete, transfer ordered by MD. dr5 16:15 Transferred by ground EMS Transfer form completed. Note: [facility] rs5 16:15 Condition: stable rs5 16:15 Instructed on the need for transfer, Demonstrated understanding of instructions, 16:17 Patient left the ED. iw Signatures: Dispatcher [employer] EDMS Paty Cancino, RN RN iw [place] Mar Ricky, RN RN rs5 Elizabeth King ra3 Jona Hilton, WILLIAM-C CLERGY MEMBER-Cdr5 Corrections: (The following items were deleted from the chart) 17:00 12:15 BP 124 / 83; Pulse 108bpm; Resp 19bpm; Pulse Ox 100% RA; iw rs5
[2024-07-03 16:23] VITALS: BP 124/83; O2SAT 100
== END 2024-07-03 16:17 | disposition short-term general hospital (02) ==
LOC: ER 11:17
DX: N93.8 Other specified abnormal uterine and vaginal bleeding (principal); E11.9 Type 2 diabetes mellitus without complications
CPT/HCPCS: 96361; 85025 ×2; 80048; 36415; 86900 ×2; 86850; 86901 ×2; 74177; 76856; 51702; 96375; 96374; 99285; Q9967; J2405; J7030

== ENCOUNTER 2024-10-20 18:10 | Emergency (ER) | payer OTHER ==
--- NOTE | 2024-10-20 19:49 | RAD REPORT ---
EXAM: Chest Single View HISTORY: 59 years Female [place];Palpitations COMPARISON: 02/12/2010 FINDINGS: LUNGS/PLEURA: The lungs are clear. No pleural effusions or pneumothorax. No pulmonary edema. CARDIAC/MEDIASTINUM: The cardiac silhouette is within normal limits. UPPER ABDOMEN: No significant abnormality. BONES: No acute abnormality. LINES/TUBES/OTHER: N/A IMPRESSION: No evidence of acute cardiopulmonary disease.
[2024-10-20 20:00] LABS: Absolute Eosinophils 0.1 K/uL (0-0.5); Absolute Monocytes 0.4 K/uL (0.1-1.3); Absolute Neutrophil 2.1 K/uL (1.8-8.0); Basophils % 0.7 % (0-1.3); Hemoglobin 13.5 g/dL (12.0-15.0); Lymphocytes % 42.5 % (15.3-44.8); MCH 28.7 pg (27.0-35.0); MCHC 34.6 g/dL (32.0-36.0); MPV 8.4 fL (7.6-11.3); Neutrophils % 45.8 % (41.7-73.7); Nucleated Red Blood Cells % 0.1 % (0-0); Platelets 183 thou/uL (152-406); RBC Red Blood Cell Count 4.69 M/uL (3.86-4.86); Red Cell Distribution Width 14.2 % (12.1-15.2)
[2024-10-20 20:09] LABS: PT Prothrombin Time 11.1 SECONDS (10-13.0); Protime INR 0.97
[2024-10-20 20:18] LABS: Albumin/Globulin Ratio 1.2 (1.1-1.8); Anion Gap 7.9 mEq/L (5.0-15.0); Bilirubin Direct 0.2 mg/dL (0-0.2); Bilirubin Indirect, Calculated 0.4 mg/dL (0.2-0.8); Bilirubin Total 0.6 mg/dL (0.2-1.0); Globulin 3.4 g/dL (2.3-3.5); Magnesium 1.7 mg/dL (1.6-2.4); Potassium 3.9 mEq/L (3.5-5.1); Protein, Total 7.4 g/dL (6.4-8.2); Troponin High Sensitivity 8.1 pg/mL (<58.9)
--- NOTE | 2024-10-20 22:00 | ER ---
Nurse's Notes [facility] Name: Aaliyah Bronson Age: 59 yrs Sex: Female : 1965 Arrival Date: 10/20/2024 Time: 18:10 Bed 19 Private MD: Diagnosis: Palpitations;Dyspnea, unspecified;Anxiety disorder, unspecified Presentation: 10/20 18:44 Chief complaint: Patient states: in June i started to have to take deep breaths, iw then I went to the clinic and they said I have anxiety, this morning i woke up and started sweating , my BS was 180, I still feel shaky and feels like i have to take a deep breath . Today I left work and i have to have my work note filled out . [facility] to [facility] and they did an E[facility] and told me to come to the ER , she has hx of WPW. Coronavirus screen: At this time, the client does not indicate any symptoms associated with coronavirus-19. Ebola Screen: No symptoms or risks identified at this time. Initial Sepsis Screen: Does the patient meet any 2 criteria? No. Patient's initial sepsis screen is negative. Does the patient have a suspected source of infection? No. Patient's initial sepsis screen is negative. Risk Assessment: Do you want to hurt yourself or someone else? Patient reports no desire to harm self or others. Onset of symptoms was October 20, 2024. 18:44 Method Of Arrival: Ambulatory iw 18:44 Acuity: GISELA 3 iw Triage Assessment: 22:05 GI: Reports tolerance of food. kj2 Historical: - Allergies: 18:49 No Known Allergies; iw - PMHx: 18:49 Diabetes - IDDM; diabetes mellitus; Hyperlipidemia; iw - PSHx: 18:49 section; iw - Immunization history:: Adult Immunizations not up to date. - Infectious Disease History:: Denies. - Social history:: Smoking status: Patient denies any tobacco usage or history of. Screenin:15 [facility] ED Fall Risk Assessment (Adult) History of falling in the last 3 months, kj2 including since admission No falls in past 3 months (0 pts) Confusion or Disorientation No (0 pts) Intoxicated or Sedated No (0 pts) Impaired Gait No (0 pts) Mobility Assist Device Used No (0 pt) Altered Elimination No (0 pt) Score/Fall Risk Level 0 - 2 = Low Risk Maintained a safe environment, Hourly rounding (assess needs \T\ fall precautionary measures) done. Abuse screen: Denies threats or abuse. Denies injuries from another. Nutritional screening: No deficits noted. Tuberculosis screening: No symptoms or risk factors identified. Assessment: 19:15 General: Appears in no apparent distress. Behavior is cooperative. Pain: Denies pain. kj2 Neuro: Level of Consciousness is awake, alert, obeys commands, Oriented to person, place, time, situation. Cardiovascular: Patient's skin is warm and dry. Respiratory: Airway is patent Respiratory effort is unlabored. GI: No signs and/or symptoms were reported involving the gastrointestinal system. Abdomen is non-distended. : No signs and/or symptoms were reported regarding the genitourinary system. 20:07 Reassessment: Patient appears in no apparent distress at this time. Patient and/or kj2 family updated on plan of care and expected duration. Pain level reassessed. Patient is alert, oriented x 3, equal unlabored respirations, skin warm/dry/pink. 20:59 Reassessment: Patient appears in no apparent distress at this time. Patient and/or kj2 family updated on plan of care and expected duration. Pain level reassessed. Patient is alert, oriented x 3, equal unlabored respirations, skin warm/dry/pink. 22:03 Reassessment: Patient appears in no apparent distress at this time. Patient and/or kj2 family updated on plan of care and expected duration. Pain level reassessed. Patient is alert, oriented x 3, equal unlabored respirations, skin warm/dry/pink. Vital Signs: 18:44 BP 132 / 80; Pulse 103; Resp 19; Temp 98.1; Pulse Ox 100% on R/A; Weight 67.59 kg; iw Height 5 ft. 3 in. ; 20:06 BP 107 / 54; Pulse 80; Resp 18; Temp 98; Pulse Ox 100% on R/A; kj2 21:00 BP 98 / 81; Pulse 82; Resp 18; Pulse Ox 100% ; kj2 22:00 BP 125 / 73; Pulse 89; Resp 18; Temp 98; Pulse Ox 100% on R/A; kj2 18:44 Body Mass Index 26.39 (67.59 kg, 160.02 cm) ED Course: 18:18 Patient arrived in ED. im 18:21 Jacey Miller MD is Attending Physician. sp3 18:48 Triage completed. iw 19:15 Patient has correct armband on for positive identification. Bed in low position. Call kj2 light in reach. Adult w/ patient. Provided Education on: call light. 19:15 Arm band placed on Patient placed in an exam room, on a stretcher. kj2 19:42 XRAY Chest (1 view) In Process Unspecified. EDMS 19:45 EKG done, by release and technical records clerk. reviewed by Jacey Miller MD. af3 19:52 Inserted saline lock: 20 gauge in right antecubital area, using aseptic technique. af3 Blood collected. Flushed with 10 mL NS. 19:55 Twila Echols RN is Primary Nurse. kj2 20:05 Attending Physician role handed off by Jacey Miller MD rn 20:05 Armaan Morgan MD is Attending Physician. rn 22:04 No provider procedures requiring assistance completed. IV discontinued, intact, kj2 bleeding controlled, No redness/swelling at site. Pressure dressing applied. Administered Medications: No medications were administered Medication: 19:15 VIS not applicable for this client. kj2 Outcome: 22:00 Discharge ordered by . rn 22:05 Discharged to home ambulatory, kj2 22:05 Condition: stable 22:05 Discharge instructions given to patient, Instructed on discharge instructions, follow up and referral plans. Demonstrated understanding of instructions, follow-up care, 22:19 Patient left the ED. kj2 Signatures: Dispatcher [employer] EDMS Paty Cancino RN RN iw Armaan Morgan MD MD rn Patel, Setul, MD MD sp3 Jessica Ro Twila Echols RN RN kj2 Cristela Lentz af3 Corrections: (The following items were deleted from the chart) 18:50 18:44 BP 132 / 80; Pulse 103bpm; Resp 19bpm; Pulse Ox 100% RA; iw iw
--- NOTE | 2024-10-20 22:00 | EDPHYS ---
Physician Documentation [facility] Name: Aaliyah Bronson Age: 59 yrs Sex: Female : 1965 Arrival Date: 10/20/2024 Time: 18:10 Bed 19 Private MD: ED Physician Armaan Morgan HPI: 10/20 18:44 This 59 yrs old Female presents to ER via Unassigned with complaints of Anxiety, sp3 Nausea, Decreased Appetite, Dizziness. 18:44 . sp3 19:18 59-year-old female with history of Qunha-Vefpuwoag-Erbdm syndrome, diabetes, sp3 hyperlipidemia now presents to the ED with chief complaint dyspnea on exertion and generalized weakness. She states that she also has a history of anxiety however this feels "different". She went to her PCP who referred her here for further evaluation. She denies any chest pain, back pain, abdominal pain, vomiting, diarrhea, syncope, or any other signs or symptoms on ROS at this time.. Historical: - Allergies: 18:49 No Known Allergies; iw - PMHx: 18:49 Diabetes - IDDM; diabetes mellitus; Hyperlipidemia; iw - PSHx: 18:49 section; iw - Immunization history:: Adult Immunizations not up to date. - Infectious Disease History:: Denies. - Social history:: Smoking status: Patient denies any tobacco usage or history of. ROS: 19:19 Constitutional: Negative for fever, chills, and weight loss, Eyes: Negative for injury, sp3 pain, redness, and discharge, Neck: Negative for injury, pain, and swelling, Abdomen/GI: Negative for abdominal pain, nausea, vomiting, diarrhea, and constipation, Back: Negative for injury and pain, MS/Extremity: Negative for injury and deformity, Skin: Negative for injury, rash, and discoloration, Neuro: Negative for headache, weakness, numbness, tingling, and seizure, Psych: Negative for depression, anxiety, suicide ideation, homicidal ideation, and hallucinations, Allergy/Immunology: Negative for hives, rash, and allergies, Endocrine: Negative for neck swelling, polydipsia, polyuria, polyphagia, and marked weight changes, 19:19 All other systems are negative, Exam: 19:19 Constitutional: This is a well developed, well nourished patient who is awake, alert, sp3 and in no acute distress. Head/Face: Normocephalic, atraumatic. Eyes: Pupils equal round and reactive to light, extra-ocular motions intact. Lids and lashes normal. Conjunctiva and sclera are non-icteric and not injected. Cornea within normal limits. Periorbital areas with no swelling, redness, or edema. ENT: Nares patent. No nasal discharge, no septal abnormalities noted. External auditory canals are clear. Oropharynx with no redness, swelling, or masses, exudates, or evidence of obstruction, uvula midline. Mucous membranes moist. Neck: Trachea midline, no thyromegaly or masses palpated, and no cervical lymphadenopathy. Supple, full range of motion without nuchal rigidity, or vertebral point tenderness. No Meningismus. Chest/axilla: Normal chest wall appearance and motion. Nontender with no deformity. No lesions are appreciated. Cardiovascular: Regular rate and rhythm with a normal S1 and S2. No gallops, murmurs, or rubs. Normal PMI, no JVD. No pulse deficits. Respiratory: Lungs have equal breath sounds bilaterally, clear to auscultation and percussion. No rales, rhonchi or wheezes noted. No increased work of breathing, no retractions or nasal flaring. Abdomen/GI: Soft, non-tender, with normal bowel sounds. No distension or tympany. No guarding or rebound. No evidence of tenderness throughout. Back: No spinal tenderness. No costovertebral tenderness. Full range of motion. Skin: Warm, dry with normal turgor. Normal color with no rashes, no lesions, and no evidence of cellulitis. MS/ Extremity: Pulses equal, no cyanosis. Neurovascular intact. Full, normal range of motion. Neuro: Awake and alert, GCS 15, oriented to person, place, time, and situation. Cranial nerves II-XII grossly intact. Motor strength 5/5 in all extremities. Sensory grossly intact. Cerebellar exam normal. Normal gait. Psych: Awake, alert, with orientation to person, place and time. Behavior, mood, and affect are within normal limits. 19:45 ECG was reviewed by the Attending Physician. EKG demonstrates normal sinus rhythm at 92 sp3 bpm with normal intervals except QTc of 462, normal axis normal QRS except delta with consistent with WPW, and nonspecific ST/T changes without evidence of acute ischemia. Vital Signs: 18:44 BP 132 / 80; Pulse 103; Resp 19; Temp 98.1; Pulse Ox 100% on R/A; Weight 67.59 kg; iw Height 5 ft. 3 in. ; 20:06 BP 107 / 54; Pulse 80; Resp 18; Temp 98; Pulse Ox 100% on R/A; kj2 21:00 BP 98 / 81; Pulse 82; Resp 18; Pulse Ox 100% ; kj2 22:00 BP 125 / 73; Pulse 89; Resp 18; Temp 98; Pulse Ox 100% on R/A; kj2 18:44 Body Mass Index 26.39 (67.59 kg, 160.02 cm) iw MDM: 18:44 Medical Screening Exam initiated sp3 19:19 Data reviewed: vital signs, nurses notes, old medical records, lab test result(s), EKG, sp3 radiologic studies. 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 Will obtain EKG, chest x-ray and general labs. Differential diagnosis includes arrhythmia, acute coronary syndrome, electrolyte abnormality, viral illness, among others. We will assess above workup and patient will be signed out to nighttime physician for final reevaluation and final disposition.. 21:03 ED course: Signed out to me by Dr. Miller, his plan was to reevaluate patient and rn possibly repeat troponin. Patient reports feelings of anxiety for years, shortness of breath during these episodes of anxiety. Patient feels this is more anxiety related. States has had a stress test in the past that was clear. Patient reports has been having the symptoms for years. 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 Patient denies any heart racing or syncope. No chest pain. Offered patient admission for cardiac evaluation and she declines. After speaking with her she agrees to repeat troponin and if negative she would like to go home and follow-up with cardiology instead of being admitted. Patient states that she just got off of medical leave for a cervical problem and does not want to miss work again.. 21:59 Differential diagnosis: Anxiety, arrhythmia, stress reaction, WPW, cardiac related rn symptoms. Consideration of Admission/Observation Escalation of care including admission/observation considered. Admission considered but patient declines and wants to be discharged. Counseling: I had a detailed discussion with the patient and/or guardian regarding the historical points, exam findings, and any diagnostic results supporting the discharge/admit diagnosis, lab results, radiology results, the need for outpatient follow up, to return to the emergency department if symptoms worsen or persist or if there are any questions or concerns that arise at home. Response to treatment: the patient's symptoms have markedly improved after treatment, and as a result, I will discharge patient. Special discussion:. 21:59 Special discussion: Based on the history and exam findings, there is no indication for rn further emergent testing or inpatient evaluation. I discussed with the patient/guardian the need to see the plaster tender for further evaluation of the symptoms. 10/20 19:13 Order name: Basic Metabolic Panel; Complete Time: 20: sp3 10/20 19:13 Order name: CBC with Diff; Complete Time: 20: 3 10/20 19:13 Order name: LFT's; Complete Time: 20: 3 10/20 19:13 Order name: Magnesium; Complete Time: 20: sp3 10/20 19:13 Order name: NT PRO-BNP; Complete Time: 20: 3 10/20 19:13 Order name: PT-INR; Complete Time: 20: sp3 10/20 19:13 Order name: Troponin HS; Complete Time: 20: sp3 10/20 20:57 Order name: Troponin High Sensitivity; Complete Time: 21:41 rn 10/20 19:13 Order name: XRAY Chest (1 view); Complete Time: 19:50 3 10/20 19:13 Order name: Cardiac monitoring; Complete Time: 19:45 sp3 10/20 19:13 Order name: EKG - Nurse/Tech; Complete Time: 19:45 sp3 10/20 19:13 Order name: IV Saline Lock; Complete Time: 19:52 sp3 10/20 19:13 Order name: Labs collected and sent; Complete Time: 19:52 sp3 10/20 19:13 Order name: O2 Per Protocol; Complete Time: 19:45 3 10/20 19:13 Order name: O2 Sat Monitoring; Complete Time: 19:45 sp3 Administered Medications: No medications were administered Disposition Summary: 10/20/24 22:00 Discharge Ordered Notes: Location: Home rn Problem: an ongoing problem rn Symptoms: have improved rn Condition: Stable rn Diagnosis - Palpitations rn - Dyspnea, unspecified rn - Anxiety disorder, unspecified rn Followup: rn - With: Private Physician - When: As needed - Reason: Recheck today's complaints, Re-evaluation by your physician Discharge Instructions: - Discharge Summary Sheet rn - Palpitations rn - Shortness of Breath, Adult rn - Generalized Anxiety Disorder, Adult rn - Managing Anxiety, Adult rn Forms: - Medication Reconciliation Form rn - Antibiotic prn occupational therapist - Prescription Opioid Use rn - Patient Portal Instructions rn - Leadership Thank You Letter rn - Work release form kj2 Signatures: Dispatcher [employer] Paty Richards RN RN iw Nieto, Roman, MD MD rn Patel, Setul, MD MD sp3 Corrections: (The following items were deleted from the chart) 19:14 19:14 BASIC METABOLIC PANEL+C.LAB.BRZ ordered. EDMS EDMS 19:14 19:14 CBC+H.LAB.BRZ ordered. EDMS EDMS 19:14 19:14 HEPATIC FUNCTION+C.LAB.BRZ ordered. EDMS EDMS 19:14 19:14 MAGNESIUM+C.LAB.BRZ ordered. EDMS EDMS 19:14 19:14 PROBNP+C.LAB.BRZ ordered. EDMS EDMS 19:14 19:14 PROTIME (+INR)+COAG.LAB.BRZ ordered. EDMS EDMS 19:14 19:14 Troponin High Sensitivity+C.LAB.BRZ ordered. EDMS EDMS 19:14 19:14 Chest Single View+RAD.RAD.BRZ ordered. EDMS EDMS 20:57 20:57 Troponin High Sensitivity+C.LAB.BRZ ordered. EDMS EDMS
[2024-10-20 23:04] VITALS: O2SAT 100
[2024-10-20 23:06] VITALS: TEMP 98
[2024-10-20 23:09] VITALS: BP 125/73
--- NOTE | 2024-10-21 12:10 | EKG ---
Test Date: 2024-10-20 Test Time: 19:43:07 Geospatial Imagery Intelligence Analyst: AF MEASUREMENT RESULTS: Intervals: Rate: 92 NE: 120 QRSD: 98 QT: 374 QTc: 462 [place]: P: 70 NE: 120 QRS: -8 T: 87 INTERPRETIVE STATEMENTS: Normal sinus rhythm Cannot rule out Anterior infarct, age undetermined Abnormal ECG No previous ECG available for comparison Electronically Signed On 10-21-24 12:08:33 CDT by Dhaval Bellamy
== END 2024-10-20 22:19 | disposition home or self-care (01) ==
LOC: ER 18:10
DX: R00.2 Palpitations (principal); R06.00 Dyspnea, unspecified; F41.9 Anxiety disorder, unspecified; E11.9 Type 2 diabetes mellitus without complications; E78.5 Hyperlipidemia, unspecified
CPT/HCPCS: 36415; 71045; 80048; 80076; 83735; 83880; 84484; 85025; 85610; 93005; 99284